=== PATIENT | female | born 1970 | race Caucasian/White ===

== ENCOUNTER → 2020-06-04 | Outpatient (CLI) | payer OTHER ==
[~2020-06-04] MED LIST: BUSPIRONE HCL7.5 MG PO; FENOFIBRATE PO; LIPITOR10 MG PO; LOSARTAN POTASS25 MG PO; PROTONIX40 MG PO; PROZAC40 MG PO; STOOL SOFTENER100 M1 PO; ZYRTEC10 MG PO
[2020-06-04 11:43] LABS: HEMOGLOBIN 12.1 gm/dl (12.3-15.3); RED BLOOD COUNT 3.93 M/UL (4.00-5.10); WHITE BLOOD COUNT 6.6 K/UL (4.5-11.0)
[2020-06-04 12:04] LABS: BUN/CREATININE RATIO 13 (0-10)
== END ==
LOC: LAB 10:30
PROVIDERS: Nurse Practitioner Family
DX: I10 Essential (primary) hypertension (principal); E78.5 Hyperlipidemia, unspecified; E55.9 Vitamin D deficiency, unspecified
CPT/HCPCS: 36415; 80053; 80061; 81001; 84439; 84443; 85025

== ENCOUNTER → 2020-07-12 | Day surgery (SDC) | payer OTHER | END | disposition home or self-care (01) | LOC: OR 07:06 | DX: K29.50 Unspecified chronic gastritis without bleeding (principal); K31.9 Disease of stomach and duodenum, unspecified; K64.0 First degree hemorrhoids; I10 Essential (primary) hypertension; E78.5 Hyperlipidemia, unspecified; E66.01 Morbid (severe) obesity due to excess calories; Z68.41 Body mass index [BMI] 40.0-44.9, adult; Z86.010 Personal history of colon polyps; Z80.0 Family history of malignant neoplasm of digestive organs; Z79.899 Other long term (current) drug therapy | CPT/HCPCS: J2001; J2704; J7040 ==

== ENCOUNTER → 2020-08-17 | Outpatient (CLI) | payer OTHER | LOC: KOH-I 10:20 | DX: R10.11 Right upper quadrant pain (principal); K76.0 Fatty (change of) liver, not elsewhere classified; K80.20 Calculus of gallbladder without cholecystitis without obstruction | CPT/HCPCS: 76705 ==

== ENCOUNTER → 2020-08-21 | Outpatient (CLI) | payer OTHER | LOC: KOH-I 08:45 | DX: J32.9 Chronic sinusitis, unspecified (principal) | CPT/HCPCS: 70486 ==